=== PATIENT | male | born 1965 | race Hispanic/Latino ===

== ENCOUNTER 2016-06-16 13:22 | Emergency (ER) | payer MEDICAID, OTHER ==
[2016-06-16 13:22] VITALS: BMI 32.1
[2016-06-16 13:40] VITALS: RESP 18; TEMP 98.2; O2SAT 97
--- NOTE | 2016-06-16 14:59 | ED PDOC ---
Arrival/HPI - General Chief Complaint: Trauma Time Seen by Provider: 06/16/16 13:26 Historian: Patient - History of Present Illness Narrative History of Present Illness (Text): 06/16/16 14:55 Patient presents to the emergency room complaining of left knee pain and right ankle pain after he slipped and fell at home yesterday. Patient states that he can bear weight on the right ankle with pain, and the left knee with minimal discomfort. Denies any head injury, LOC, neck pain, back pain or any other injuries. IVAND Marline Past Medical History - Provider Review Nursing Documentation Reviewed: Yes - Cardiac Hx Cardiac Disorders: No Hx Hypertension: Yes - Pulmonary Hx Tuberculosis: No - Neurological HX Cerebrovascular Accident: No Hx Seizures: No - HEENT Hx HEENT Disorder: No - Renal Hx Renal Disorder: No - Endocrine/Metabolic Hx Diabetes Mellitus Type 2: Yes - Hematological/Oncological Hx Cancer: No - Integumentary Hx Dermatological Disorder: No - Musculoskeletal/Rheumatological Hx Back Pain: Yes Hx Falls: No Hx Herniated Disk: Yes - Gastrointestinal Hx Gastrointestinal Disorders: Yes Hx Gastroesophageal Reflux: Yes - Genitourinary/Gynecological Hx Sexually Transmitted Diseases: No - Psychiatric Hx Anxiety: Yes Hx Depression: Yes Hx Substance Use: No - Surgical History Other/Comment: Brain Surgery (pituitary adenoma). - Anesthesia Hx Anesthesia: Yes Hx Anesthesia Reactions: No Hx Malignant Hyperthermia: No - Suicidal Assessment Feels Threatened In Home Enviroment: No Family/Social History - Physician Review Nursing Documentation Reviewed: Yes Family/Social History: No Known Family HX Smoking Status: Heavy Smoker > 10 Cigarettes Daily Hx Alcohol Use: Yes Frequency of alcohol use: Socially Hx Substance Use: No Hx Substance Use Treatment: No Allergies/Home Meds Allergies/Adverse Reactions: Allergies No Known Allergies Allergy (Verified 10/28/15 23:56) Home Medications: Home Meds Medication Instructions Recorded Confirmed Pantoprazole 40 mg PO DAILY 04/28/14 10/29/15 Alprazolam [Xanax] 2 mg PO BID 10/29/15 10/29/15 Citalopram 10/29/15 Gabapentin [Neurontin] 900 mg PO TID 10/29/15 10/29/15 Linagliptin/Metformin HCl 10/29/15 [Jentadueto 2.5 mg-500 mg Tab] Niacin [Niacin ER] 10/29/15 Review of Systems - Review of Systems Constitutional: Normal. absent: Fatigue, Fevers Musculoskeletal: Normal, Arthralgias. absent: Back Pain, Neck Pain Skin: Normal. absent: Rash, Skin Lesions Physical Exam - Physical Exam Narrative Physical Exam (Text): 06/16/16 14:58 GENERAL APPEARANCE: Patient is awake, alert, oriented x 3, in mild painful distress. SKIN: Warm, dry; (-) cyanosis. L KNEE: (-) tenderness with (-) effusion. Able to extend actively to 0 degrees ; (-) instability on valgus or varus stress. Drawer sign (-). (-) distal neurovascular deficit. 2 point discrimination. Hip, thigh, leg and ankle: (- ) tenderness or limitation of motion. R ANKLE: Ankle: (-) swelling, tenderness of the medial aspect of the ankle; (+ ) mild swelling and tenderness of the lateral ankle; (+) limited range of motion secondary to pain. Achilles tendon intact and nontender. Knee and foot : (-) injury. CARDIOVASCULAR: (+) distal pulse. NEUROLOGIC: (+) distal sensation. Vital Signs Temp Pulse Resp BP Pulse Ox 06/16/16 13:39 98.2 F 86 18 142/81 97 Medical Decision Making ED Course and Treatment: 06/16/16 14:59 50 yo M presents to the emergency room for left knee and right ankle pain after slip and fall yesterday. XRs ordered. XR left knee: no fracture, no dislocation, as read by PA XR right ankle: no fracture, no dislocation, as read by PA Patient advised that official radiology read of XR is still pending and will call the patient if there is any discrepancy within 24 hours. Jw wrap applied to left knee and right ankle. Patient offered crutches. X-ray results discussed the patient in great detail.Based on history, exam and diagnostic results plan will be for patient follow-up. Prescription provided. Patient states he fully agrees with and understands discharge instructions. States that he agrees with the plan and disposition. Verbalized and repeated discharge instructions and plan. I have given the patient opportunity to ask any additional questions. Follow up with primary care physician in 1-2 days without fail. Advised to take medication as prescribed. Return to the emergency room at any time for any new or worsening symptoms. - RAD Interpretation Radiology Orders: 06/16/16 13:54 ANKLE RIGHT 3 VIEWS ROUTINE [RAD] Stat KNEE LEFT 2 VIEWS (AP & LAT) [RAD] Stat - Medication Orders Current Medication Orders: Discontinued Medications Tramadol HCl (Ultram) 50 mg PO STAT STA Stop: 06/16/16 13:55 Last Admin: 06/16/16 14:00 Dose: 50 MG - PA / COUPLES THERAPIST / Resident Statement MD/ has reviewed & agrees with the documentation as recorded. Disposition/Present on Arrival - Present on Arrival Any Indicators Present on Arrival: No History of DVT/PE: No History of Uncontrolled Diabetes: No Urinary Catheter: No History of Decub. Ulcer: No History Surgical Site Infection Following: None - Disposition Have Diagnosis and Disposition been Completed?: Yes Diagnosis: Knee sprain, Ankle sprain Disposition: HOME/ ROUTINE Disposition Time: 15:02 Patient Plan: Discharge Patient Problems: Current Active Problems Problem Status Diagnosed Ankle sprain Acute Knee sprain Acute Condition: GOOD Discharge Instructions (ExitCare): Ankle Sprain (ED), Knee Sprain (ED) Print Language: KOREAN Additional Instructions: Thank you for letting us take care of you today. You were treated for knee sprain, ankle sprain. The emergency medical care you received today was directed at your acute symptoms. If you were prescribed any medication, please fill it and take as directed. It may take several days for your symptoms to resolve. Return to the Emergency Department if your symptoms worsen, do not improve, or if you have any other problems. Please contact your doctor in 2 days for re-evaluation and follow up. Bring any paperwork you were given at discharge with you along with any medications you are taking to your follow up visit. Our treatment cannot replace ongoing medical care by a primary care provider (PCP) outside of the emergency department. Thank you for allowing the [facility] team to be part of your care today. Prescriptions: Meloxicam [Mobic] 15 mg PO DAILY #20 tab
[2016-06-16 15:19] VITALS: BP 138/79; PULSE 79
--- NOTE | 2016-06-16 16:11 | RAD ---
PROCEDURE: Right Wrist Radiographs. HISTORY: pain COMPARISON: None. FINDINGS: BONES: Normal. No fracture. JOINTS: Normal. No dislocation. SOFT TISSUES: Normal. OTHER FINDINGS: None. IMPRESSION: Normal right wrist radiographs.
--- NOTE | 2016-06-16 16:22 | RAD ---
HISTORY: pain COMPARISON: No prior FINDINGS: BONES: Normal. No fracture. JOINTS: Normal. No osteoarthritis. SOFT TISSUE: Normal. OTHER FINDINGS: Suprapatellar spur formation.. IMPRESSION: No fracture.
== END 2016-06-16 15:35 | disposition home or self-care (01) ==
LOC: ED 13:22
DX: S83.92XA Sprain of unspecified site of left knee, initial encounter (principal); S93.401A Sprain of unspecified ligament of right ankle, initial encounter; W01.0XXA Fall on same level from slipping, tripping and stumbling without subsequent striking against object, initial encounter; Y92.009 Unspecified place in unspecified non-institutional (private) residence as the place of occurrence of the external cause; E11.9 Type 2 diabetes mellitus without complications; I10 Essential (primary) hypertension
CPT/HCPCS: 73560; 73610; 96372; 99285; J1885

== ENCOUNTER 2016-07-14 22:53 | Emergency (ER) | payer MEDICAID, OTHER ==
[2016-07-14 23:06] VITALS: BP 142/80; PULSE 89; RESP 16; TEMP 98; BMI 32.7
--- NOTE | 2016-07-14 23:21 | ED PDOC ---
Arrival/HPI - General Chief Complaint: Trauma Time Seen by Provider: 07/14/16 23:18 Historian: Patient - History of Present Illness Narrative History of Present Illness (Text): 07/14/16 23:21 Feliciano Zelaya is a 50 year old male, whose past medical history includes diabetes, hypertension, hyperlipidemia, GERD, depression, and anxiety, who presents to the emergency department status post mechanical fall yesterday. Patient states he was walking outside on the sidewalk yesterday when he tripped and fell to the ground. Patient states he hit the left side of his jaw and landed on his right hand/arm. Patient now complaining of right forearm pain radiating down to hand and left jaw pain. Patient also believes he may have chipped his right lower molar. Patient denies any headache, dizziness, vision changes, neck pain, back pain, abdominal pain, nausea, vomiting, numbness/ tingling in extremity, or any other complaints. Time/Duration: 24 hours (yesterday) Symptom Onset: Gradual Symptom Course: Unchanged Activities at Onset: Light Context: Walking, Street Past Medical History - Provider Review Nursing Documentation Reviewed: Yes - Cardiac Hx Cardiac Disorders: No Hx Hypertension: Yes - Pulmonary Hx Tuberculosis: No - Neurological HX Cerebrovascular Accident: No Hx Seizures: No - HEENT Hx HEENT Disorder: No - Renal Hx Renal Disorder: No - Endocrine/Metabolic Hx Diabetes Mellitus Type 2: Yes - Hematological/Oncological Hx Cancer: No - Integumentary Hx Dermatological Disorder: No - Musculoskeletal/Rheumatological Hx Back Pain: Yes Hx Falls: No Hx Herniated Disk: Yes - Gastrointestinal Hx Gastrointestinal Disorders: Yes Hx Gastroesophageal Reflux: Yes - Genitourinary/Gynecological Hx Sexually Transmitted Diseases: No - Psychiatric Hx Anxiety: Yes Hx Depression: Yes Hx Substance Use: No - Surgical History Other/Comment: Brain Surgery (pituitary adenoma). - Anesthesia Hx Anesthesia: Yes Hx Anesthesia Reactions: No Hx Malignant Hyperthermia: No - Suicidal Assessment Feels Threatened In Home Enviroment: No Family/Social History - Physician Review Nursing Documentation Reviewed: Yes Family/Social History: No Known Family HX Smoking Status: Heavy Smoker > 10 Cigarettes Daily Hx Alcohol Use: Yes Hx Substance Use: No Hx Substance Use Treatment: No Allergies/Home Meds Allergies/Adverse Reactions: Allergies No Known Allergies Allergy (Verified 10/28/15 23:56) Home Medications: Home Meds Medication Instructions Recorded Confirmed Pantoprazole 40 mg PO DAILY 04/28/14 10/29/15 Alprazolam [Xanax] 2 mg PO BID 10/29/15 10/29/15 Citalopram 10/29/15 Gabapentin [Neurontin] 900 mg PO TID 10/29/15 10/29/15 Linagliptin/Metformin HCl 10/29/15 [Jentadueto 2.5 mg-500 mg Tab] Niacin [Niacin ER] 10/29/15 Review of Systems - Physician Review All systems were reviewed & negative as marked: Yes - Review of Systems Constitutional: Normal Eyes: Normal ENT: Other (+left jaw pain, +chipped right lower tooth) Respiratory: Normal. absent: SOB, Cough Cardiovascular: Normal. absent: Chest Pain Gastrointestinal: Normal. absent: Abdominal Pain, Diarrhea, Nausea, Vomiting Genitourinary Male: Normal. absent: Dysuria, Frequency, Hematuria, Urinary Output Changes Musculoskeletal: Arthralgias (+right forearm/wrist pain) Skin: Normal Neurological: Normal. absent: Headache, Dizziness Endocrine: Normal Hemo/Lymphatic: Normal Psychiatric: Normal Physical Exam Vital Signs Reviewed: Yes Vital Signs Temp Pulse Resp BP Pulse Ox 07/14/16 23:05 98.0 F 89 16 142/80 97 Temperature: Afebrile Blood Pressure: Normal Pulse: Regular Respiratory Rate: Normal Appearance: Positive for: Well-Appearing, Non-Toxic, Comfortable Pain Distress: None Mental Status: Positive for: Alert and Oriented X 3 - Systems Exam Head: Present: Normocephalic, Tenderness (Tenderness to left mandible) Pupils: Present: PERRL Extroacular Muscles: Present: EOMI Conjunctiva: Present: Normal Mouth: Present: Moist Mucous Membranes, Other ([place] right lower premolar) Neck: Present: Normal Range of Motion Respiratory/Chest: Present: Clear to Auscultation, Good Air Exchange. No: Respiratory Distress, Accessory Muscle Use Cardiovascular: Present: Regular Rate and Rhythm, Normal S1, S2. No: Murmurs Abdomen: Present: Normal Bowel Sounds. No: Tenderness, Distention, Peritoneal Signs Upper Extremity: Present: NORMAL PULSES, Tenderness (Tenderness to right wrist/ hand), Neurovascularly Intact, Capillary Refill < 2s. No: Cyanosis, Edema, Temperature Abnormalties Lower Extremity: Present: Normal Inspection. No: Edema Neurological: Present: GCS=15, CN II-XII Intact, Speech Normal Skin: Present: Warm, Dry, Normal Color. No: Rashes Psychiatric: Present: Alert, Oriented x 3, Normal Insight, Normal Concentration Medical Decision Making ED Course and Treatment: 07/14/16 23:21 Impression: 50 year old male complaining of right forearm pain radiating to hand and left jaw pain s/p mechanical fall yesterday. Differential Diagnosis included but are not limited to: fracture vs. contusion vs. sprain Plan: -- CT Maxillofacial -- XR Right Forearm -- XR Right Wrist -- XR Right Hand -- Reassess and disposition Prior Visits: Notes and results from previous visits were reviewed. Progress Notes: 07/15/16 00:30 Reviewed radiology, XR Right Forearm shows no evidence of fracture. XR Right Wrist shows no evidence of fracture. XR Right Hand shows no evidence of fracture. CT Maxillofacial shows: 1. No fracture. 2. Incidental/non-acute findings are described above. Re-evaluation Time: 01:13 Reassessment Condition: Re-examined, Improved - RAD Interpretation Narrative RAD Interpretations (Text): XR Right Forearm shows no evidence of fracture. XR Right Wrist shows no evidence of fracture. XR Right Hand shows no evidence of fracture. CT Maxillofacial shows: Bones/joints: No acute fracture. Degenerative changes of cervical spine. Soft tissues: Minimal facial soft tissue swelling. Orbits: Unremarkable as visualized. Sinuses: Mild focal mucosal thickening RIGHT posterior ethmoid, sphenoid sinuses. No air-fluid levels. Postsurgical changes. Dental: Dental corey. IMPRESSION: 1. No fracture. 2. Incidental/non-acute findings are described above. Radiology Orders: 07/14/16 23:21 MAXILLOFACIAL W/O CONTRAST [CT] Stat 07/14/16 23:22 FOREARM RIGHT [RAD] Stat HAND RIGHT 3 VIEWS [RAD] Stat WRIST, RIGHT 3 VIEWS [RAD] Stat Transfer Engineer: ED Physician, Radiologist - Medication Orders Current Medication Orders: Discontinued Medications Oxycodone/Acetaminophen (Percocet 5/325 Mg Tab) 1 tab PO STAT STA Stop: 07/15/16 00:07 Last Admin: 07/15/16 00:28 Dose: 1 tab - Scribe Statement The provider has reviewed the documentation as recorded by the Jairo English Provider Attestation: All medical record entries made by the Jairo were at my direction and personally dictated by me. I have reviewed the chart and agree that the record accurately reflects my personal performance of the history, physical exam, medical decision making, and the department course for this patient. I have also personally directed, reviewed, and agree with the discharge instructions and disposition. Disposition/Present on Arrival - Present on Arrival Any Indicators Present on Arrival: No History of DVT/PE: No History of Uncontrolled Diabetes: No Urinary Catheter: No History of Decub. Ulcer: No History Surgical Site Infection Following: None - Disposition Have Diagnosis and Disposition been Completed?: Yes Diagnosis: Right wrist sprain Disposition: HOME/ ROUTINE Disposition Time: 01:13 Condition: GOOD Discharge Instructions (ExitCare): Wrist Injury (ED) Prescriptions: oxyCODONE/Acetaminophen [Percocet 5/325 mg Tab] 1 ea PO QID #6 tab Referrals: Thierry Ledesma DO [Staff Provider] - Follow up with primary [facility] [place] [Outside] - Follow up with primary
[2016-07-15] MEDS ORDERED: Oxycodone/Acetaminophen 5/325 mg Tab PO STA (00:06)
--- NOTE | 2016-07-15 00:33 | CT ---
EXAM: CT Maxillofacial Without Intravenous Contrast CLINICAL HISTORY: 50 years old, male; Injury or trauma; Fall; Initial encounter; Concussion /head injury; Loss of consciousness not known TECHNIQUE: Axial computed tomography images of the face without intravenous contrast. This CT exam was performed using one or more of the following dose reduction techniques: automated exposure control, adjustment of the mA and/or kV according to patient size, and/or use of iterative reconstruction technique. Coronal and sagittal reformatted images were created and reviewed. COMPARISON: No relevant prior studies available. FINDINGS: Bones/joints: No acute fracture. Degenerative changes of cervical spine. Soft tissues: Minimal facial soft tissue swelling. Orbits: Unremarkable as visualized. Sinuses: Mild focal mucosal thickening RIGHT posterior ethmoid, sphenoid sinuses. No air-fluid levels. Postsurgical changes. Dental: Dental corey. IMPRESSION: 1. No fracture. 2. Incidental/non-acute findings are described above.
[2016-07-15 01:32] VITALS: O2SAT 98
--- NOTE | 2016-07-15 10:34 | RAD ---
PROCEDURE: Right Wrist Radiographs. HISTORY: fall COMPARISON: None. FINDINGS: BONES: Normal. No fracture. JOINTS: Normal. No dislocation. SOFT TISSUES: Normal. OTHER FINDINGS: None. IMPRESSION: Normal right wrist radiographs.
--- NOTE | 2016-07-15 10:35 | RAD ---
PROCEDURE: Right Hand Radiographs. HISTORY: fall COMPARISON: None. FINDINGS: BONES: Normal. No fracture. JOINTS: Normal. No osteoarthritic changes. SOFT TISSUES: Normal. OTHER FINDINGS: None. IMPRESSION: Normal right hand radiographs.
--- NOTE | 2016-07-15 10:35 | RAD ---
PROCEDURE: Radiographs of the Right Forearm HISTORY: fall COMPARISON: None available. TECHNIQUE: Frontal and lateral views obtained. FINDINGS: BONES: No fracture or destructive lesion. JOINT SPACES: Unremarkable. OTHER FINDINGS: None. IMPRESSION: Unremarkable radiographs of the right forearm.
== END 2016-07-15 01:32 | disposition home or self-care (01) ==
LOC: ED 22:53
DX: S63.501A Unspecified sprain of right wrist, initial encounter (principal); W01.0XXA Fall on same level from slipping, tripping and stumbling without subsequent striking against object, initial encounter; Y93.01 Activity, walking, marching and hiking; Y92.480 Sidewalk as the place of occurrence of the external cause; I10 Essential (primary) hypertension; E11.9 Type 2 diabetes mellitus without complications; F17.210 Nicotine dependence, cigarettes, uncomplicated
CPT/HCPCS: 29240; 70486; 73090; 73110; 73130; 96372; 99284; J1885

== ENCOUNTER 2016-09-08 02:32 | Emergency (ER) | payer MEDICAID, OTHER ==
[2016-09-08 02:32] VITALS: BMI 33.3
[2016-09-08 02:46] VITALS: RESP 18; TEMP 98.1; O2SAT 99
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
[2016-09-08] MEDS ORDERED: TDAP Vaccine 0.5 mL Syr IM ONE (04:07)
[2016-09-08 04:47] VITALS: BP 132/88; PULSE 88
== END 2016-09-08 04:45 | disposition home or self-care (01) ==
LOC: ED 02:32
DX: S02.2XXA Fracture of nasal bones, initial encounter for closed fracture (principal); Y04.0XXA Assault by unarmed brawl or fight, initial encounter; Z23 Encounter for immunization

== ENCOUNTER 2017-02-22 01:11 | Inpatient (IN) | payer MEDICAID, OTHER ==
[2017-02-22 01:19] VITALS: BMI 31.6
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
[2017-02-22 02:22] LABS: BASO # 0.06 K/mm3 (0.0-2.0); BASO % 0.7 % (0.0-3.0); EOS # 0.3 (0.0-0.7); EOS % 2.8 % (1.5-5.0); GRAN # 4.86 (1.4-6.5); HEMATOCRIT 39.8 % (42.0-52.0); LYMPH # 3.3 (1.2-3.4); LYMPH % 36.9 % (22.0-35.0); MEAN CELL VOLUME 91.9 fl (80.0-105.0); MEAN CORPUSCULAR HEMOGLOBIN 30.3 pg (25.0-35.0); MEAN CORPUSCULAR HGB CONC 32.9 g/dl (31.0-37.0); MEAN PLATELET VOLUME 9.8 fl (7.0-11.0); MONO # 0.5 (0.1-0.6); MONO % 5.6 % (1.0-6.0); RED CELL DISTRIBUTION WIDTH 13.1 % (11.5-14.5)
[2017-02-22 02:24] LABS: ALB/GLOB RATIO 1.7 (1.1-1.8); ALKALINE PHOSPHATASE 62 U/L (38-126); ALT/SGPT 38 U/L (7-56); AST/SGOT 27 U/L (17-59); BILIRUBIN,TOTAL 0.4 mg/dL (0.2-1.3); BLOOD UREA NITROGEN 10 mg/dL (7-21); CALCIUM 9.3 mg/dL (8.4-10.5); CARBON DIOXIDE 25 mmol/L (21-33); CHLORIDE 104 mmol/L (98-107); GFR AFRICAN-AMERICAN > 60; GLUCOSE,RANDOM 110 mg/dL (70-110); SODIUM 141 mmol/L (132-148); TOTAL PROTEIN 6.8 g/dL (5.8-8.3)
[2017-02-22 06:35] VITALS: O2SAT 98
[2017-02-22 06:54] VITALS: RESP 20
--- NOTE | 2017-02-22 09:37 | RAD ---
HISTORY: medical clearance COMPARISON: Comparison chest dated 10/29/2015. FINDINGS: LUNGS: No active pulmonary disease. PLEURA: No significant pleural effusion identified, no pneumothorax apparent. CARDIOVASCULAR: Normal. OSSEOUS STRUCTURES: No significant abnormalities. VISUALIZED UPPER ABDOMEN: Normal. OTHER FINDINGS: None. IMPRESSION: No active disease.
[2017-02-22 09:46] LABS: CHOLESTEROL 168 mg/dL (130-200)
[2017-02-22 09:54] LABS: FREE T4 0.98 ng/dL (0.78-2.19)
[2017-02-22 10:08] LABS: THYROID STIMULATING HORMONE 0.9 mIU/mL (0.46-4.68)
--- NOTE | 2017-02-22 10:43 | CARD ---
APPROVED REPORT EKG Measurement Heart [id number] <Conclusion> Normal sinus rhythm Normal ECG
--- NOTE | 2017-02-22 11:18 | PCM.BM ---
<Sushil Burgos - Last Filed: 02/22/17 11:15> Treatment Plan Problems - Problems identified on initial assessmt High risk for suicide Date Initiated: 02/22/17 Time Initiated: 11:18 Assessment reference: HP, NA Status: Active Ineffective coping Date Initiated: 02/22/17 Time Initiated: 11:19 Assessment reference: HP, NA Status: Active Hopelessness/Helplessness Date Initiated: 02/22/17 Time Initiated: 11:21 Assessment reference: HP, NA Status: Active Treatment assets and liabiliti Patient Assests: negotiates basic needs, good interpersonal skills Patient Liabilities: physical pain, financial problems, poor support system, relationship conflicts, medical problems - Milieu Protocol Maintain good personal hygiene: daily Encourage regular showers, daily Remind patient to perform daily oral care, daily Assist patient to perform ADL's Maintain personal safety: daily Educate patient to report safety concerns to staff, daily Monitor environment for contraband/sharps Medication safety: Monitor for expected outcome, potential side effects: daily, Assess barriers to learning: daily, Assess readiness for medication education: daily Milieu Narrative: * Group, milieu and supportive tx * Increase Wellbutrin XL to 300 mg daily * Celexa 40 mg daily, consider switch to another antidepressant. Will review with patient * Xanax 2 mg po bid for anxiety * Seroquel 200 mg po HS for mood control and off label for sleep. * Remeron 30 mg hs for depression * Awaiting medical f/u * Vitals reviewed and noted below: Selected Entries 02/22/17 02/22/17 06:32 06:52 Temperature 98.4 F 97.4 F L Pulse Rate 78 69 Respiratory 18 20 Rate Blood Pressure 135/80 133/86 O2 Sat by Pulse 98 Oximetry ER LABS AND STUDIES 02/22/17 03:29 Reviewed EKG, NSR at [address]-segment elevations or depressions, no T-wave inversions, normal intervals. CXR reviewed, no acute processes. 02/22/17 03:40: Urine Opiates Screen Negative, Urine Methadone Screen Negative, Ur Barbiturates Screen Negative, Ur Phencyclidine Scrn Negative, Ur Amphetamines Screen Negative, U Benzodiazepines Scrn Positive, U Oth Cocaine Metabols Negative, U Cannabinoids Screen Negative 02/22/17 02:00: Alcohol, Quantitative 100 H 02/22/17 02:00: Sodium 141, Potassium 4.0, Chloride 104, Carbon Dioxide 25, Anion Gap 16, BUN 10, Creatinine 0.9, Est GFR ( Amer) > 60, Est GFR (Non- Af Amer) > 60, Random Glucose 110, Calcium 9.3, Total Bilirubin 0.4, AST 27, ALT 38, Alkaline Phosphatase 62, Total Protein 6.8, Albumin 4.3, Globulin 2.6, Albumin/Globulin Ratio 1.7 02/22/17 02:00: WBC 9.0 D, RBC 4.33, Hgb 13.1 L, Hct 39.8 L, MCV 91.9, MCH 30.3 , MCHC 32.9, RDW 13.1, Plt Count 287, MPV 9.8, Gran % 54.0, Lymph % (Auto) 36.9 H, Beauregard % (Auto) 5.6, Eos % (Auto) 2.8, Baso % (Auto) 0.7, Gran # 4.86, Lymph # 3.3, Beauregard # 0.5, Eos # 0.3, Baso # 0.06 Discharge/Continuing Care - Education Needs Education Needs: Patient Medication, Patient Diagnosis/Disease Process, Patient Coping Skills, Patient Placement options, Patient Community resources, Patient Uses of Medical Equipment, Patient Health Practices/Safety, Patient Personal Hygiene/Grooming, Patient Aftercare Safety Plan, Patient Other - Discharge Discharge Criteria: Free of Suicidal thoughts, Free of Homicidal thoughts, Normal sleep pattern, Ability to care for self - Treatment Team Participation Patient/Family/SO Statement: * Group, milieu and supportive tx * Increase Wellbutrin XL to 300 mg daily * Celexa 40 mg daily, consider switch to another antidepressant. Will review with patient * Xanax 2 mg po bid for anxiety * Seroquel 200 mg po HS for mood control and off label for sleep. * Remeron 30 mg hs for depression * Awaiting medical f/u * Vitals reviewed and noted below: Selected Entries 02/22/17 02/22/17 06:32 06:52 Temperature 98.4 F 97.4 F L Pulse Rate 78 69 Respiratory 18 20 Rate Blood Pressure 135/80 133/86 O2 Sat by Pulse 98 Oximetry ER LABS AND STUDIES 02/22/17 03:29 Reviewed EKG, NSR at [address]-segment elevations or depressions, no T-wave inversions, normal intervals. CXR reviewed, no acute processes. 02/22/17 03:40: Urine Opiates Screen Negative, Urine Methadone Screen Negative, Ur Barbiturates Screen Negative, Ur Phencyclidine Scrn Negative, Ur Amphetamines Screen Negative, U Benzodiazepines Scrn Positive, U Oth Cocaine Metabols Negative, U Cannabinoids Screen Negative 02/22/17 02:00: Alcohol, Quantitative 100 H 02/22/17 02:00: Sodium 141, Potassium 4.0, Chloride 104, Carbon Dioxide 25, Anion Gap 16, BUN 10, Creatinine 0.9, Est GFR ( Amer) > 60, Est GFR (Non- Af Amer) > 60, Random Glucose 110, Calcium 9.3, Total Bilirubin 0.4, AST 27, ALT 38, Alkaline Phosphatase 62, Total Protein 6.8, Albumin 4.3, Globulin 2.6, Albumin/Globulin Ratio 1.7 02/22/17 02:00: WBC 9.0 D, RBC 4.33, Hgb 13.1 L, Hct 39.8 L, MCV 91.9, MCH 30.3 , MCHC 32.9, RDW 13.1, Plt Count 287, MPV 9.8, Gran % 54.0, Lymph % (Auto) 36.9 H, Beauregard % (Auto) 5.6, Eos % (Auto) 2.8, Baso % (Auto) 0.7, Gran # 4.86, Lymph # 3.3, Beauregard # 0.5, Eos # 0.3, Baso # 0.06 <Mouna Sellers - Last Filed: 02/23/17 04:52> - Diagnosis (1) Major depressive disorder, severe Status: Acute <Estrella Franco - Last Filed: 02/24/17 16:18> Family Contact Family involvement: Family/SO is involved Family contact: Patient agrees to contact - Outside Agency [facility] Care involvment: Information-sharing Agency contact name: [facility] Agency contact number: [phone]
--- NOTE | 2017-02-22 14:19 | CP.PCM.CON ---
<Isidoro Hawk - Last Filed: 02/22/17 14:39> History of Present Illness - History of Present Illness History of Present Illness: Isidoro Hawk DO PGY1 - Internal Medicine Consult Note Consultation for medical management of DM, HTN, HLD Patient is a 51 yo M with PMH of MDD, J CARLSO, DM, HTN, HLD, and pituitary adenoma s /p transsphenoidal resection. Presents to the hospital complaining of depression and suicidal ideation with plan. He had called his therapist to "say goodbye" but his therapist called the police who brought him to the hospital. He denies any somatic complaints. He reports that he lost 25 pounds in the past 2-3 months due to decreased appetite and worsened depressive symptoms. He denies any chest pain, SOB, cough, nausea, vomiting, diarrhea, constipation, abdominal pain, hematochezia, melena, hemoptysis, fever, chills, night sweats. 12 point ROS obtained and is negative except as in HPI PMH: MDD, J CARLOS, HTN, HLD, DM, pituitary adenoma s/p transphenoidal resection PSH: transphenoidal resection of pituitary adenoma 2009 Soc: Currently vapes; prior 1 PPD smoker, 35 PYH; drinks 4-6 drinks 3 times monthly; denies illicits FHx: Denies All: NKDA PMD: Marline Psych: Jc Cifuentes Past Patient History - Past Medical History & Family History Past Medical History?: Yes - Past Social History Smoking Status: Former Smoker - CARDIAC Hx Cardiac Disorders: Yes - PULMONARY Hx Respiratory Disorders: Yes Hx Bronchitis: Yes (2008) - NEUROLOGICAL Hx Neurological Disorder: No - HEENT Hx HEENT Problems: No - RENAL Hx Chronic Kidney Disease: No - ENDOCRINE/METABOLIC Hx Endocrine Disorders: Yes (removal pitituary tumor) - INTEGUMENTARY Hx Dermatological Problems: No - MUSCULOSKELETAL/RHEUMATOLOGICAL Hx Herniated Disk: Yes (lumbar and cervical) - GASTROINTESTINAL Hx Gastrointestinal Disorders: Yes Hx Gastroesophageal Reflux: Yes Other/Comment: IRREGULAR BOWEL PATTERN - GENITOURINARY/GYNECOLOGICAL Hx Genitourinary Disorders: No Hx Sexually Transmitted Disorders: No - PSYCHIATRIC Hx Psychophysiologic Disorder: Yes Hx Depression: Yes Hx Emotional Abuse: No Hx Physical Abuse: No Hx Substance Use: No - ANESTHESIA Hx Anesthesia: Yes Hx Anesthesia Reactions: No Hx Malignant Hyperthermia: No Meds Allergies/Adverse Reactions: Allergies Allergy/AdvReac Type Severity Reaction Status Date / Time No Known Allergies Allergy Verified 02/22/17 01:18 - Medications Medications: Current Medications Alprazolam (Xanax) 2 mg PO BID [facility] PRN Reason: Protocol Last Admin: 02/22/17 09:52 Dose: 2 mg Aspirin (Aspirin Chewable) 81 mg PO DAILY [facility] Last Admin: 02/22/17 09:53 Dose: 81 mg Atorvastatin Calcium (Lipitor) 40 mg PO DIN [facility] Bupropion HCl (Wellbutrin Xl) 300 mg PO DAILY [facility] Citalopram Hydrobromide (Celexa) 40 mg PO DAILY [facility] Last Admin: 02/22/17 09:53 Dose: 40 mg Insulin Human Regular (Humulin R Low) 0 units SC ACHS [facility] PRN Reason: Protocol Lisinopril (Zestril) 20 mg PO DAILY [facility] Last Admin: 02/22/17 09:53 Dose: 20 mg Lorazepam (Ativan) 1 mg PO Q6H PRN; Protocol PRN Reason: Withdrawal Mirtazapine (Remeron) 30 mg PO HS [facility] Multivitamins (Thera Tab) 1 tab PO 0800 [facility] Nicotine (Nicoderm Cq) 1 patch TD DAILY [facility] Last Admin: 02/22/17 13:04 Dose: 1 patch Quetiapine Fumarate (Seroquel) 200 mg PO HS [facility] PRN Reason: Protocol Thiamine HCl (Vitamin B1 Tab) 100 mg PO DAILY [facility] Physical Exam - Constitutional Appears: Non-toxic, No Acute Distress - Head Exam Head Exam: ATRAUMATIC, NORMOCEPHALIC - Eye Exam Eye Exam: EOMI, Normal appearance, PERRL. absent: Scleral icterus - ENT Exam ENT Exam: Mucous Membranes Moist - Neck Exam Neck exam: Negative for: Lymphadenopathy, Thyromegaly - Respiratory Exam Respiratory Exam: Clear to Auscultation Bilateral, NORMAL BREATHING PATTERN - Cardiovascular Exam Cardiovascular Exam: RRR, +S1, +S2 - GI/Abdominal Exam GI & Abdominal Exam: Normal Bowel Sounds, Soft. absent: Distended, Firm, Guarding, Rebound, Rigid, Tenderness - Extremities Exam Extremities exam: Negative for: calf tenderness, pedal edema - Neurological Exam Neurological exam: Alert, Oriented x3 - Psychiatric Exam Psychiatric exam: Depressed, Flat Affect - Skin Skin Exam: Dry, Intact Results - Vital Signs Recent Vital Signs: Last Vital Signs Temp 97.4 F L 12/09/17 06:52 Pulse 69 02/22/17 06:52 Resp 20 02/22/17 06:52 BP 133/86 02/22/17 06:52 Pulse Ox 98 02/22/17 06:32 - Labs Result Diagrams: 02/22/17 02:00 02/22/17 02:00 Labs: Laboratory Results - last 24 hr 02/22/17 02/22/17 08:10 08:10 Triglycerides 317 H Cholesterol 168 LDL Cholesterol Direct 84 HDL Cholesterol 53 Free T4 0.98 TSH 3rd Generation 0.90 Assessment & Plan - Assessment and Plan (Free Text) Assessment: 51 yo M with PMH of MDD, J CARLOS, HTN, HLD, DM, and pitutary adenoma s/p transsphenoidal resection presents for depressive symptoms and suicidal ideation. Plan: 1. Depression with suicidal ideation/plan - Patient currently denies suicidal ideation, but did describe the thoughts and plan he had prior to his admission - Currently on multiple psychotropic medications - Initial labs unremarkable, beyond alcohol level and benzodiazepines in the UDS , which he has prescribed - Continue management per psychiatry 2. HTN - BP well controlled - Continue home lisinopril 3. DM - Blood sugar currently well controlled - Patient takes Linagliptin/Metformin at home - Currently on SSI Low with accucheck ACHS - Continue to monitor blood sugar; if not requiring much insulin, will switch back to oral hypoglycemics 4. HLD - Lipid panel shows mildly elevated triglyceride - Continue home statin 5. h/o pituitary adenoma s/p transsphenoidal resection - Patient takes cabergoline at home, not on formulary; instructed patient to have family bring home meds to the hospital GI/DVT Ppx - Protonix; patient is ambulatory Patient seen, discussed, and reviewed with attending <Natanael Bailey - Last Filed: 02/22/17 17:14> Meds - Medications Medications: Current Medications Alprazolam (Xanax) 2 mg PO BID [facility] PRN Reason: Protocol Last Admin: 02/22/17 09:52 Dose: 2 mg Aspirin (Aspirin Chewable) 81 mg PO DAILY [facility] Last Admin: 02/22/17 09:53 Dose: 81 mg Atorvastatin Calcium (Lipitor) 40 mg PO DIN [facility] Bupropion HCl (Wellbutrin Xl) 300 mg PO DAILY [facility] Citalopram Hydrobromide (Celexa) 40 mg PO DAILY [facility] Last Admin: 02/22/17 09:53 Dose: 40 mg Insulin Human Regular (Humulin R Low) 0 units SC ACHS [facility] PRN Reason: Protocol Lisinopril (Zestril) 20 mg PO DAILY [facility] Last Admin: 02/22/17 09:53 Dose: 20 mg Lorazepam (Ativan) 1 mg PO Q6H PRN; Protocol PRN Reason: Withdrawal Mirtazapine (Remeron) 30 mg PO HS [facility] Multivitamins (Thera Tab) 1 tab PO 0800 [facility] Nicotine (Nicoderm Cq) 1 patch TD DAILY [facility] Last Admin: 02/22/17 13:04 Dose: 1 patch Quetiapine Fumarate (Seroquel) 200 mg PO HS [facility] PRN Reason: Protocol Thiamine HCl (Vitamin B1 Tab) 100 mg PO DAILY [facility] Results - Vital Signs Recent Vital Signs: Last Vital Signs Temp 97.4 F L 02/22/17 06:52 Pulse 73 02/22/17 16:11 Resp 20 02/22/17 06:52 BP 123/77 02/22/17 16:11 Pulse Ox 98 02/22/17 06:32 - Labs Result Diagrams: 02/22/17 02:00 02/22/17 02:00 Labs: Laboratory Results - last 24 hr 02/22/17 02/22/17 08:10 08:10 Triglycerides 317 H Cholesterol 168 LDL Cholesterol Direct 84 HDL Cholesterol 53 Free T4 0.98 TSH 3rd Generation 0.90 Attending/Attestation - Attestation I have personally seen and examined this patient.: Yes I have fully participated in the care of the patient.: Yes I have reviewed all pertinent clinical information: Yes Notes (Text): 02/22/17 17:10 Attending note; Patient seen and examined with resident in psych floor. Patient is a 51-year-old male with past medical history of depression anxiety hypertension, diabetes, and pituitary adenoma s/p transsphenoidal resection. Presents to the hospital complaining of depression and suicidal ideation. blood pressure and diabetes are better controlled. labs reviewed. Active smoking; smoking cessation is strongly advised. Started on NicoDerm patch. Alcohol abuse; currently not in withdrawal. Continue multivitamin, thiamine and folic acid. Ativan prn ordered. complete alcohol cessation is strongly advised. History of pituitary surgery. Continue cabergoline/home meds. patient is clinically table. Please reconsult as needed. Thank you for the courtesy of this consultation. 02/22/17 17:14
[2017-02-22] MEDS: Insulin Reg-LOW-Coverage SC SCH (22:03)
[2017-02-23] MEDS: Insulin Reg-LOW-Coverage SC SCH ×4 (08:00→21:24)
[2017-02-23] MEDS: Multivitamin Therapeutic Tab PO SCH (08:30)
[2017-02-23] MEDS: buPROPion 300 mg/24 Hours XL Tab PO SCH (08:30)
--- NOTE | 2017-02-23 08:48 | PCM.PYCHPN ---
Psychiatric Progress Note - Psychiatric Progress Note Patient seen today, length of contact: 25 min Patient Chief Complaint: "depressed" Problems Identified/Issues Discussed: History of Present Illness and Precipitating Events: Patient is a 51-year old white male with a history of major depressive disorder or alcohol use disorder, multiple prior psychiatric hospitalizations- most recently at [facility] 06/16/15-06/22/15, compliant with psychiatric medications prescribed by Dr. Lott at [facility] who was BIB EMS to the ER complaining of depression and suicidal thoughts with plan. He would not elaborate on the plan because it was "too graphic". Patient also reported that he drank a few beers prior to arrival. Patient reports he has a long history of depression since childhood. Indicates that symptoms have been worsening recently. He endorses crying spells, poor sleep low frustration tolerance, hopelessness, low energy and motivation despite compliance with psychiatric medications. Reports stressors of poor finances and the pending anniversary of his ex- who on [place] two years ago. Presently he is in control, his thought process is coherent and goal directed. Soeech is within normal limits, fluent and patient can express needs well. Affect is constricted. He denies a perceptual disturbance and he does not appear to be responding to internal stimuli. SOCIAL HISTORY Patient was born in raised in [place]. He resides with his two adult sons. Patient graduate high school and he is unemployed. He had a work-related fall in 2010 with resulting bulging discs in his neck and back-had a long-term worker 's compensation case . Patient denies any legal issues. Patient denies any drug use however drink approximately 2-3 times a month, last use was a few beers yesterday. Patient used to drink a lot more. She denies any tobacco use PSYCHIATRIC HISTORY Patient reports multiple prior psychiatric admissions. Most recently admitted at [facility] 06/16/15-06/22/15 and 04/28/14-05/05/14. Patient reports that he is an outpatient treatment at [facility] ([facility]) with Dr. Flores. He also sees a therapist, Gloria Ahumada weekly. Prescribed Wellbutrin XL 150 mg daily, celexa 40 mg daily, xanax 2 mg po bid, remeron 30 mg hs and Seroquel 200 mg HS. Patient reports suicide attempt a couple of years ago, he superficially cut himself in the chest with a knife. ~~~~~~~~~~~~ I reviewed recent notes and met with patient at bedside. He remains oriented x3 and fairly cooperative with questioning. He is still depressed with constricted affect. Responses are consistent and relevant to questioning. We discuss medication trials and patient indicates poor response with Prozac. He cannot recall if Zoloft or Paxil were beneficial. He is unsure about changing his antidepressant however he is agreeable to increasing Wellbutrin dose today Patient has been tolerating medications. Denies any new side effects, discomfort or pain. He has been calm on the unit and there were no behavioral issues since admission thus far. Diagnostic Results: Major depressive disorder recurrent severe without psychotic features Alcohol use disorder (severe in the past) Medication Change: No Medical Record Reviewed: Yes Mental Status Examination - Cognitive Function Orientation: Person, Place, Situation - Mood Mood: Depressed - Affect Affect: Constricted - Speech Speech: Appropriate - Formal Thought Process Formal Thought Process: No Impairment - Suicidal Ideation Suicidal Ideation: No - Homicidal Ideation Homicidal Ideation: No Goal/Treatment Plan - Goal/Treatment Plan Progress Toward Problem(s) and Goals/Treatment Plan: * Group, milieu and supportive tx * c/w Wellbutrin XL at increased dose of 300 mg daily * Celexa 40 mg daily, consider switch to another antidepressant. Will review with patient * Xanax 2 mg po bid for anxiety * Seroquel 200 mg po HS for mood control and off label for sleep. * Remeron 30 mg hs for depression * Appreciate f/u by Dr. Bailey on 02/22/17~please see medical note for more details * Vitals reviewed and noted below: Selected Entries 02/22/17 02/22/17 02/22/17 06:32 06:52 16:11 Temperature 98.4 F 97.4 F L Pulse Rate 78 69 73 Respiratory 18 20 Rate Blood Pressure 135/80 133/86 123/77 O2 Sat by Pulse 98 Oximetry ER LABS AND STUDIES 02/22/17 03:29 Reviewed EKG, NSR at [address]-segment elevations or depressions, no T-wave inversions, normal intervals. CXR reviewed, no acute processes. 02/22/17 03:40: Urine Opiates Screen Negative, Urine Methadone Screen Negative, Ur Barbiturates Screen Negative, Ur Phencyclidine Scrn Negative, Ur Amphetamines Screen Negative, U Benzodiazepines Scrn Positive, U Oth Cocaine Metabols Negative, U Cannabinoids Screen Negative 02/22/17 02:00: Alcohol, Quantitative 100 H 02/22/17 02:00: Sodium 141, Potassium 4.0, Chloride 104, Carbon Dioxide 25, Anion Gap 16, BUN 10, Creatinine 0.9, Est GFR ( Amer) > 60, Est GFR (Non- Af Amer) > 60, Random Glucose 110, Calcium 9.3, Total Bilirubin 0.4, AST 27, ALT 38, Alkaline Phosphatase 62, Total Protein 6.8, Albumin 4.3, Globulin 2.6, Albumin/Globulin Ratio 1.7 02/22/17 02:00: WBC 9.0 D, RBC 4.33, Hgb 13.1 L, Hct 39.8 L, MCV 91.9, MCH 30.3 , MCHC 32.9, RDW 13.1, Plt Count 287, MPV 9.8, Gran % 54.0, Lymph % (Auto) 36.9 H, Garza % (Auto) 5.6, Eos % (Auto) 2.8, Baso % (Auto) 0.7, Gran # 4.86, Lymph # 3.3, Garza # 0.5, Eos # 0.3, Baso # 0.06 FLOOR LABS AND STUDIES Laboratory Results - last 24 hr 02/22/17 02/22/17 02/22/17 08:10 08:10 08:10 POC Glucose (mg/dL) Fasting Glucose Triglycerides 317 H Cholesterol 168 LDL Cholesterol Direct 84 HDL Cholesterol 53 Free T4 0.98 TSH 3rd Generation 0.90 RPR Nonreactive 02/22/17 02/23/17 02/23/17 21:05 07:00 07:21 POC Glucose (mg/dL) 124 H 95 Fasting Glucose 102 Triglycerides Cholesterol LDL Cholesterol Direct HDL Cholesterol Free T4 TSH 3rd Generation RPR
[2017-02-24] MEDS: Insulin Reg-LOW-Coverage SC SCH ×2 (08:46→20:38)
[2017-02-24] MEDS: Multivitamin Therapeutic Tab PO SCH (08:57)
[2017-02-24] MEDS: buPROPion 300 mg/24 Hours XL Tab PO SCH (08:58)
--- NOTE | 2017-02-24 17:30 | CP.PCM.CON ---
<Keli Fuchs - Last Filed: 02/24/17 17:27> History of Present Illness - History of Present Illness History of Present Illness: PGY-2 Neurology consult note for Dr. Andrews's service 51 yo male with PMH of Diabetes, HTN, depression, anxiety presents for depression, SI and memory loss. Patient states that he feels that he has been having memory problems since his surgery in 2009. However he state sits been worse recently and his friends have been telling him that he repeats himself. He states that there are times he can not find items in his home but states that he has no difficulty with tasks of daily living. He denies any headache, fever, chills, chest pain, sob, urinary problems. He does report chronic neck pain due to a previous injury. PMH: Type 2 Diabetes, hypertension, hyperlipidemia, GERD, depression, anxiety PSH: Pituitary adenoma s/p resection family history: Father: Lung Ca Allergies: NKDA Social History: Smokes ~1/2ppd for past 37yrs, Drinks beer/shots of liquor 3time per month, Denies illicit drug use. Review of Systems - Review of Systems All systems: reviewed and no additional remarkable complaints except (as stated in HPI) Past Patient History - Past Medical History & Family History Past Medical History?: Yes - Past Social History Smoking Status: Former Smoker - CARDIAC Hx Cardiac Disorders: Yes - PULMONARY Hx Respiratory Disorders: Yes Hx Bronchitis: Yes (2008) - NEUROLOGICAL Hx Neurological Disorder: No - HEENT Hx HEENT Problems: No - RENAL Hx Chronic Kidney Disease: No - ENDOCRINE/METABOLIC Hx Endocrine Disorders: Yes (removal pitituary tumor) - INTEGUMENTARY Hx Dermatological Problems: No - MUSCULOSKELETAL/RHEUMATOLOGICAL Hx Herniated Disk: Yes (lumbar and cervical) - GASTROINTESTINAL Hx Gastrointestinal Disorders: Yes Hx Gastroesophageal Reflux: Yes Other/Comment: IRREGULAR BOWEL PATTERN - GENITOURINARY/GYNECOLOGICAL Hx Genitourinary Disorders: No Hx Sexually Transmitted Disorders: No - PSYCHIATRIC Hx Substance Use: No - ANESTHESIA Hx Anesthesia: Yes Hx Anesthesia Reactions: No Hx Malignant Hyperthermia: No Meds Allergies/Adverse Reactions: Allergies Allergy/AdvReac Type Severity Reaction Status Date / Time No Known Allergies Allergy Verified 02/22/17 01:18 - Medications Medications: Current Medications Alprazolam (Xanax) 2 mg PO BID LOLI PRN Reason: Protocol Last Admin: 02/24/17 08:57 Dose: 2 mg Aspirin (Aspirin Chewable) 81 mg PO DAILY [facility] Last Admin: 02/24/17 08:58 Dose: 81 mg Atorvastatin Calcium (Lipitor) 40 mg PO DIN [facility] Last Admin: 02/23/17 16:33 Dose: 40 mg Bupropion HCl (Wellbutrin Xl) 300 mg PO DAILY [facility] Last Admin: 02/24/17 08:58 Dose: 300 mg Citalopram Hydrobromide (Celexa) 40 mg PO DAILY [facility] Last Admin: 02/24/17 08:58 Dose: 40 mg Folic Acid (Folic Acid) 1 mg PO DAILY [facility] Last Admin: 02/24/17 08:57 Dose: 1 mg Lisinopril (Zestril) 20 mg PO DAILY [facility] Last Admin: 02/24/17 08:58 Dose: 20 mg Lorazepam (Ativan) 1 mg PO Q6H PRN; Protocol PRN Reason: Withdrawal Metformin HCl (Glucophage) 500 mg PO BID [facility] Methylphenidate HCl (Ritalin) 5 mg PO DAILY [facility] Last Admin: 02/24/17 13:30 Dose: 5 mg Mirtazapine (Remeron) 30 mg PO HS [facility] Last Admin: 02/23/17 21:25 Dose: 30 mg Multivitamins (Thera Tab) 1 tab PO 0800 [facility] Last Admin: 02/24/17 08:57 Dose: 1 tab Nicotine (Nicoderm Cq) 1 patch TD DAILY [facility] Last Admin: 02/24/17 08:56 Dose: 1 patch Quetiapine Fumarate (Seroquel) 200 mg PO HS [facility] PRN Reason: Protocol Last Admin: 02/23/17 21:25 Dose: 200 mg Sitagliptin Phosphate (Januvia) 50 mg PO DAILY [facility] Thiamine HCl (Vitamin B1 Tab) 100 mg PO DAILY [facility] Last Admin: 02/24/17 08:57 Dose: 100 mg Physical Exam - Constitutional Appears: Well, No Acute Distress - Head Exam Head Exam: ATRAUMATIC, NORMAL INSPECTION, NORMOCEPHALIC - Eye Exam Eye Exam: EOMI, Normal appearance, PERRL - ENT Exam ENT Exam: Mucous Membranes Moist - Respiratory Exam Respiratory Exam: Clear to Auscultation Bilateral, NORMAL BREATHING PATTERN. absent: Respiratory Distress - Cardiovascular Exam Cardiovascular Exam: REGULAR RHYTHM - Neurological Exam Neurological exam: Alert, CN II-XII Intact, Normal Gait, Oriented x3, Reflexes Normal - Expanded Neurological Exam Expanded Patient oriented to: person, place, time Cerebellar Function: Finger to Nose: Normal Neuro motor strength exam: Left Upper Extremity: 5, Right Upper Extremity: 5, Left Lower Extremity: 5, Right Lower Extremity: 5 Results - Vital Signs Recent Vital Signs: Last Vital Signs Temp 97.8 F 02/23/17 06:47 Pulse 72 02/24/17 08:58 Resp 20 02/23/17 06:47 BP 100/65 02/24/17 08:58 Pulse Ox 98 02/22/17 06:32 - Labs Result Diagrams: 02/22/17 02:00 02/22/17 02:00 Labs: Laboratory Results - last 24 hr 02/23/17 02/24/17 02/24/17 21:09 08:08 11:26 POC Glucose (mg/dL) 173 H 130 H 208 H Assessment & Plan - Assessment and Plan (Free Text) Assessment: 51 yo male with PMH of Diabtes, HTN, depression, anxity presents for depression , SI and memory loss 1. memory loss 2. depression - CT head to evaluate extent of atrophy - vit B12 levels - consider ritalin 5mg PO daily for cognition - continue treatment and medication for depression - maintain blood sugar between 140-180 - cognitive exercises - follow up outpatient for memory loss case reviewed and discussed with attending <Selvin Andrews - Last Filed: 02/24/17 17:59> Meds - Medications Medications: Current Medications Alprazolam (Xanax) 2 mg PO BID [facility] PRN Reason: Protocol Last Admin: 02/24/17 17:25 Dose: 2 mg Aspirin (Aspirin Chewable) 81 mg PO DAILY [facility] Last Admin: 02/24/17 08:58 Dose: 81 mg Atorvastatin Calcium (Lipitor) 40 mg PO DIN [facility] Last Admin: 02/24/17 17:24 Dose: 40 mg Bupropion HCl (Wellbutrin Xl) 300 mg PO DAILY [facility] Last Admin: 02/24/17 08:58 Dose: 300 mg Citalopram Hydrobromide (Celexa) 40 mg PO DAILY [facility] Last Admin: 02/24/17 08:58 Dose: 40 mg Folic Acid (Folic Acid) 1 mg PO DAILY [facility] Last Admin: 02/24/17 08:57 Dose: 1 mg Lisinopril (Zestril) 20 mg PO DAILY [facility] Last Admin: 02/24/17 08:58 Dose: 20 mg Lorazepam (Ativan) 1 mg PO Q6H PRN; Protocol PRN Reason: Withdrawal Metformin HCl (Glucophage) 500 mg PO BID [facility] Last Admin: 02/24/17 17:24 Dose: 500 mg Methylphenidate HCl (Ritalin) 5 mg PO DAILY [facility] Last Admin: 02/24/17 13:30 Dose: 5 mg Mirtazapine (Remeron) 30 mg PO HS [facility] Last Admin: 02/23/17 21:25 Dose: 30 mg Multivitamins (Thera Tab) 1 tab PO 0800 [facility] Last Admin: 02/24/17 08:57 Dose: 1 tab Nicotine (Nicoderm Cq) 1 patch TD DAILY [facility] Last Admin: 02/24/17 08:56 Dose: 1 patch Quetiapine Fumarate (Seroquel) 200 mg PO HS [facility] PRN Reason: Protocol Last Admin: 02/23/17 21:25 Dose: 200 mg Sitagliptin Phosphate (Januvia) 50 mg PO DAILY [facility] Thiamine HCl (Vitamin B1 Tab) 100 mg PO DAILY [facility] Last Admin: 02/24/17 08:57 Dose: 100 mg Results - Vital Signs Recent Vital Signs: Last Vital Signs Temp 97.8 F 02/23/17 06:47 Pulse 72 02/24/17 08:58 Resp 20 02/23/17 06:47 BP 100/65 02/24/17 08:58 Pulse Ox 98 02/22/17 06:32 - Labs Result Diagrams: 02/22/17 02:00 02/22/17 02:00 Labs: Laboratory Results - last 24 hr 02/23/17 02/24/17 02/24/17 21:09 08:08 11:26 POC Glucose (mg/dL) 173 H 130 H 208 H Attending/Attestation - Attestation I have personally seen and examined this patient.: Yes I have fully participated in the care of the patient.: Yes I have reviewed all pertinent clinical information: Yes
--- NOTE | 2017-02-24 21:52 | PCM.PYCHPN ---
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 Additionally he had brain surgery for a pituitary adenoma in May of 2014 which resulted in residual forgetfulness and repetitiveness. His 2 years ago this [place]. He has been seeing a therapist and psychiatrist for the last 3 years and has been on Celexa and Wellbutrin, neither of which he feels are helpful at this point. He estimates he has been hospitalized at least 10 times with a history of 4 suicide attempts. His first suicide attempt was at age 17, he lay on the railroad tracks and was saved by a friend, others were overdoses. He denies any history of drug abuse, however 2- 3x a month he will drink it all at one sitting. He had a difficult life, he is the oldest of 4 boys, father left when he was 4, mother was a drug addict and patient was raised mostly in group homes. He indicates that he has been depressed his "whole life". He lives with his 2 sons ages 22 and 23, one just graduated from college and is set to attend the police academy, the other works as a lead welder. His finances are difficult and he has applied for disability but has not heard the outcome of this yet. He denies being suicidal or homicidal, he denies the presence of hallucinations , delusions or paranoia. His mood is blunted, memory and focus and concentration are poor. Sleep and appetite are reported as normal. His goal for this hospitalization is to "feel better". Medication Change: Yes (Ritalin added) Medical Record Reviewed: Yes Mental Status Examination - Cognitive Function Orientation: Person, Place, Situation - Mood Mood: Depressed - Affect Affect: Constricted - Speech Speech: Appropriate - Formal Thought Process Formal Thought Process: No Impairment - Suicidal Ideation Suicidal Ideation: No - Homicidal Ideation Homicidal Ideation: No
[2017-02-25] MEDS: buPROPion 300 mg/24 Hours XL Tab PO SCH (09:01)
[2017-02-25] MEDS: Multivitamin Therapeutic Tab PO SCH (09:01)
--- NOTE | 2017-02-25 09:42 | CT ---
PROCEDURE: CT HEAD WITHOUT CONTRAST. HISTORY: memeory loss COMPARISON: 09/08/2016 TECHNIQUE: Axial computed tomography images were obtained through the head/brain without intravenous contrast. Radiation dose: Total exam DLP = 678 mGy-cm. This CT exam was performed using one or more of the following dose reduction techniques: Automated exposure control, adjustment of the mA and/or kV according to patient size, and/or use of iterative reconstruction technique. FINDINGS: HEMORRHAGE: No intracranial hemorrhage. BRAIN: No mass effect or edema. No atrophy or chronic microvascular ischemic changes. VENTRICLES: Unremarkable. No hydrocephalus. CALVARIUM: Unremarkable. PARANASAL SINUSES: Unremarkable as visualized. No significant inflammatory changes. MASTOID AIR CELLS: Unremarkable as visualized. No inflammatory changes. OTHER FINDINGS: None. IMPRESSION: No acute findings
--- NOTE | 2017-02-25 19:30 | PCM.PYCHPN ---
Psychiatric Progress Note - Psychiatric Progress Note Patient seen today, length of contact: 25 min Patient Chief Complaint: "I have been out of work for almost 7 years and I have not heard from Disability. This is taking too long." Problems Identified/Issues Discussed: Patient continues to perseverate over the fact that he "should have had an answer" about the disability by now. He keeps coming back to this throughout the interview. He indicates he feels energized with the addition of the Ritalin but it is unclear as to whether there is a change in his focus and concentration. He indicates that he is no longer suicidal but feel he will "go back the same way" once discharged because "three years of therapy weekly have not changed anything". He is taking part in unit activities. Medication Change: No Medical Record Reviewed: Yes Mental Status Examination - Cognitive Function Orientation: Person, Place, Situation Attention: Poor Concentration: Poor Association: WNL Fund of Knowledge: Poor - Mood Mood: Depressed - Affect Affect: Constricted - Speech Speech: Appropriate - Formal Thought Process Formal Thought Process: No Impairment - Suicidal Ideation Suicidal Ideation: No - Homicidal Ideation Homicidal Ideation: No
[2017-02-26] MEDS: buPROPion 300 mg/24 Hours XL Tab PO SCH (09:09)
[2017-02-26] MEDS: Multivitamin Therapeutic Tab PO SCH (09:09)
--- NOTE | 2017-02-26 20:50 | PCM.PYCHPN ---
Psychiatric Progress Note - Psychiatric Progress Note Patient seen today, length of contact: 25 min Patient Chief Complaint: "I still have not heard from Disability." Problems Identified/Issues Discussed: Patient continues on his application for disability. He keeps coming back to this throughout the interview. Nursing staff have noted increase in energy and improved affect with the addition of the Ritalin. He brings up that he just sits in a chair at home all day and does nothing normally, but when further questioned indicates that he showers and attends to his hygiene daily, as well as cleaning his home and shopping for groceries. He is participating in unit activities and his behavior is cooperative. Medication Change: No Medical Record Reviewed: Yes Mental Status Examination - Cognitive Function Orientation: Person, Place, Situation Attention: Poor Concentration: Poor Association: WNL Fund of Knowledge: Poor - Mood Mood: Depressed - Affect Affect: Constricted - Speech Speech: Appropriate - Formal Thought Process Formal Thought Process: No Impairment - Suicidal Ideation Suicidal Ideation: No - Homicidal Ideation Homicidal Ideation: No
[2017-02-26] MEDS: POLYETHYLENE GLYCOL 3350 17 GM/Dose PACKET PO SCH (22:01)
[2017-02-27] MEDS: POLYETHYLENE GLYCOL 3350 17 GM/Dose PACKET PO SCH (09:28)
[2017-02-27] MEDS: buPROPion 300 mg/24 Hours XL Tab PO SCH (09:29)
[2017-02-27] MEDS: Multivitamin Therapeutic Tab PO SCH (09:29)
[2017-02-27] MEDS ORDERED: Magnesium Citrate Oral SOL (300 ml) PO ONE (10:25)
--- NOTE | 2017-02-27 17:14 | PCM.PYCHPN ---
Psychiatric Progress Note - Psychiatric Progress Note Patient seen today, length of contact: 25 min Patient Chief Complaint: "I am feeling better and I want to go home" Problems Identified/Issues Discussed: Patient is affectively improved. He indicates he has more energy and he wants to get home and take care of things. He is worried that his children are going to be away for the weekend and he needs to take care of his dog. He plans to continue with his psychiarist Dr Padgett and his outpatient therapist. He no longer feels suicidal and feels like he is able to cope better. Will discuss further with Dr Cerna tomorrow. Medication Change: No Medical Record Reviewed: Yes Mental Status Examination - Cognitive Function Orientation: Person, Place, Situation Attention: Poor Concentration: Poor Association: WNL Fund of Knowledge: Poor - Mood Mood: Depressed - Affect Affect: Constricted - Speech Speech: Appropriate - Formal Thought Process Formal Thought Process: No Impairment - Suicidal Ideation Suicidal Ideation: No - Homicidal Ideation Homicidal Ideation: No
[2017-02-27] MEDS ORDERED: Magnesium Hydroxide Susp 30 ml UD PO PRN (20:15)
[2017-02-27] MEDS ORDERED: Alum-Mag Hydrox-Simethicone Susp (30 mL) PO PRN (20:15)
[2017-02-28 07:19] VITALS: BP 110/62; PULSE 71; TEMP 97.9
[2017-02-28] MEDS: buPROPion 300 mg/24 Hours XL Tab PO SCH (08:56)
[2017-02-28] MEDS: POLYETHYLENE GLYCOL 3350 17 GM/Dose PACKET PO SCH (08:57)
[2017-02-28] MEDS: Multivitamin Therapeutic Tab PO SCH (08:58)
--- NOTE | 2017-02-28 14:04 | PCM.PYCHDC ---
Mental Status Examination - Mental Status Examination Orientation: Place, Situation, Time Memory: Impaired Mood: Neutral Affect: Broad Speech: Appropriate Attention: Poor Concentration: Poor Association: WNL Fund of Knowledge: WNL Formal Thought Process: No Impairment Description of patient's judgement and insight: Patient denies being suicidal or homicidal, is in no imminent danger of hurting himself or others. Psychotic Thoughts and Behaviors: Patient has no symptoms of psychosis, denies the presence of hallucinations, delusions and paranoia. 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 Additionally he had brain surgery for a pituitary adenoma in May of 2014 which resulted in residual forgetfulness and repetitiveness. His 2 years ago this [place]. He has been seeing a therapist and psychiatrist for the last 3 years and has been on Celexa and Wellbutrin, neither of which he feels are helpful at this point. He estimates he has been hospitalized at least 10 times with a history of 4 suicide attempts. His first suicide attempt was at age 17, he lay on the railroad tracks and was saved by a friend, others were overdoses. He denies any history of drug abuse, however 2- 3x a month he will drink it all at one sitting. He had a difficult life, he is the oldest of 4 boys, father left when he was 4, mother was a drug addict and patient was raised mostly in group homes. He indicates that he has been depressed his "whole life". He lives with his 2 sons ages 22 and 23, one just graduated from college and is set to attend the [employer], the other works as a welder fabricator. His finances are difficult and he has applied for disability but has not heard the outcome of this yet. He denies being suicidal or homicidal, he denies the presence of hallucinations , delusions or paranoia. His mood is blunted, memory and focus and concentration are poor. Sleep and appetite are reported as normal. His goal for this hospitalization is to "feel better". Laboratory Data: Abnormal Lab Results 02/27/17 02/27/17 02/28/17 16:25 21:13 07:18 POC Glucose (mg/dL) 151 H 153 H 89 02/28/17 11:04 POC Glucose (mg/dL) 194 H Consultations:: List each consultation separately and include: 1. Reason for request. 2. Findings. 3. Follow-up Consultations: Patient was seen by the hospitalist 02/17/2017 for management of his DM, HLD, and HTN management. Patient was seen by Dr Andrews for neurology consult due to patient's history of forgetfulness secondary to history of brain surgery for a pituitary adenoma. Ct scan without contrast showed no abnormalities. Summary of Hospital Course include:: 1. Description of specific treatment plan utilized for patients during their course of treatmen. 2. Summarize the time- course for resolution of acute symptoms and/or regressed behaviors. 3. Describe issues identified and worked on during hospitalization. 4. Describe medication utilized. 5. Describe medical problems identified and treated. 6. Reassessment of suicide risk Summary of Hospital Course: Treatment plan: Milieu/structure/supportive therapy Medical consult appreciated, see medical team note for more detailed info SW consultation for discharge plan and social issues Med management Family involvement Follow up on labs Will monitor closely SW evaluation for d/c planning Pt was educated about risk/benefits and alternatives of medications, coping strategies (safety plan, suicide prevention), relapse prevention, importance of follow up with psychiatrist and therapist, stay away from drugs/alcohol/smoking - Diagnosis (1) Major depressive disorder, severe Current Visit: Yes Status: Acute - Final Diagnosis (DSM 5) Condition upon Discharge: STABLE Disposition: HOME/ ROUTINE Prescriptions/Medication Reconciliation: Alprazolam [Xanax] 2 mg PO BID #30 tablet ALPRAZolam [Xanax] 2 mg PO BID #30 tab Atorvastatin [Lipitor] 40 mg PO DIN #14 tab buPROPion XL [Wellbutrin XL] 300 mg PO DAILY #14 t24 Citalopram [celEXA] 40 mg PO DAILY #14 tab Lisinopril [Zestril] 20 mg PO DAILY #14 tab metFORMIN [glucOPHAGE] 500 mg PO BID #30 tab Methylphenidate [Ritalin] 5 mg PO DAILY #14 tab Mirtazapine [Remeron] 30 mg PO HS #14 tab QUEtiapine [Seroquel] 200 mg PO HS #30 tab - Smoking Cessation Smoking Cessation Medication prescribed: Yes - Antipsychotic Medications Pt discharged on 2 or more routine antipsychotic medications: No
== END 2017-02-28 17:30 | disposition home or self-care (01) | DRG 430 ==
LOC: ED 01:11 → PSYC 06:12
PROVIDERS: ADMIT Psychiatry & Neurology Psychiatry; ATTEND Psychiatry & Neurology Addiction Medicine
DX: F32.2 Major depressive disorder, single episode, severe without psychotic features (principal); E11.9 Type 2 diabetes mellitus without complications; D35.2 Benign neoplasm of pituitary gland; E78.5 Hyperlipidemia, unspecified; I10 Essential (primary) hypertension; F17.200 Nicotine dependence, unspecified, uncomplicated; F10.10 Alcohol abuse, uncomplicated; Y90.5 Blood alcohol level of 100-119 mg/100 ml; F41.9 Anxiety disorder, unspecified; R41.3 Other amnesia; K21.9 Gastro-esophageal reflux disease without esophagitis; Z79.84 Long term (current) use of oral hypoglycemic drugs

== ENCOUNTER 2017-12-27 14:43 | Emergency (ER) | payer MEDICAID, OTHER ==
--- NOTE | 2017-12-27 15:02 | ED PDOC ---
Arrival/HPI - General Time Seen by Provider: 12/27/17 14:53 Historian: Patient - History of Present Illness Narrative History of Present Illness (Text): 12/27/17 14:59 52 year old male, pmh including htn/hld/dm/asthma, psychiatric history of depression, nkda, previous penitentiary smoker, complaining of coughing and chest tightness with wheezing x 2 days. Pt. stated that he has nasal congestion with coughing, coughing with phelgm and wheezing, no palpitation, no chest pain, admits feels like asthma attack, no night sweat, no rash, no fever or chills, no dizziness, no change in vision, no headache or neck pain, no other medical or psychological complaints. Past Medical History - Provider Review Nursing Documentation Reviewed: Yes - Cardiac Hx Cardiac Disorders: Yes - Pulmonary Hx Respiratory Disorders: Yes Hx Bronchitis: Yes (2008) - Neurological Hx Neurological Disorder: No - HEENT Hx HEENT Disorder: No - Renal Hx Renal Disorder: No - Endocrine/Metabolic Hx Endocrine Disorders: Yes (removal pitituary tumor) - Integumentary Hx Dermatological Disorder: No - Musculoskeletal/Rheumatological Hx Herniated Disk: Yes (lumbar and cervical) - Gastrointestinal Hx Gastrointestinal Disorders: Yes Hx Gastroesophageal Reflux: Yes Other/Comment: IRREGULAR BOWEL PATTERN - Genitourinary/Gynecological Hx Genitourinary Disorders: No Hx Sexually Transmitted Diseases: No - Psychiatric Hx Substance Use: No - Anesthesia Hx Anesthesia: Yes Hx Anesthesia Reactions: No Hx Malignant Hyperthermia: No - Suicidal Assessment Feels Threatened In Home Enviroment: No Family/Social History - Physician Review Nursing Documentation Reviewed: Yes Family/Social History: Unknown Family HX Smoking Status: Former Smoker Hx Alcohol Use: Yes Hx Substance Use: No Hx Substance Use Treatment: No Allergies/Home Meds Allergies/Adverse Reactions: Allergies No Known Allergies Allergy (Verified 12/27/17 14:58) Home Medications: Home Meds Medication Instructions Recorded Confirmed Aspirin [Adult Low Dose Aspirin EC] 1 tab PO DAILY 09/03/16 02/22/17 Review of Systems - Review of Systems Constitutional: absent: Fatigue, Fevers Eyes: absent: Vision Changes ENT: Rhinorrhea. absent: Hearing Changes Respiratory: Cough, Sputum, Wheezing. absent: SOB Cardiovascular: absent: Chest Pain Gastrointestinal: absent: Abdominal Pain, Nausea, Vomiting Skin: absent: Rash, Pruritis Neurological: absent: Headache, Dizziness Psychiatric: absent: Anxiety, Depression Physical Exam - Systems Exam Head: Present: Atraumatic, Normocephalic Pupils: Present: PERRL Extroacular Muscles: Present: EOMI Conjunctiva: Present: Normal Mouth: Present: Moist Mucous Membranes Neck: Present: Normal Range of Motion Respiratory/Chest: Present: Wheezes, Decreased Breath Sounds, Rhonchi. No: Respiratory Distress, Accessory Muscle Use, Rales, Retracting, Tachypneic, Tender to Palpation Cardiovascular: Present: Regular Rate and Rhythm, Normal S1, S2, Other (no pedal edema). No: Murmurs Abdomen: No: Tenderness, Distention, Peritoneal Signs Back: Present: Normal Inspection Upper Extremity: Present: Normal Inspection. No: Cyanosis, Edema Lower Extremity: Present: Normal Inspection. No: Edema Neurological: Present: GCS=15, CN II-XII Intact, Speech Normal Skin: Present: Warm, Dry, Normal Color. No: Rashes Psychiatric: Present: Alert, Oriented x 3, Normal Insight, Normal Concentration Medical Decision Making ED Course and Treatment: 12/27/17 15:03 -labs -Chest X-Ray -IV solumedrol/duoneb -Observe and reassess 12/27/17 16:53 -Chest xray: No active disease. -Labs are on-significant -Wheezing resolved, feeling much better, walking around the Emergency room with no coughing/rhonchi/wheezing/rales. -All labs and radiology results discussed with the patient. -Azithromycin 500mg po ordered. -Discharge home with zithromycin, prednisone, albuterol, claritin, stay hydrated, follow up with your own pmd within 2 days, return to the Emergency room for any new or worsening signs or symptoms. - RAD Interpretation Radiology Orders: Date of service: 12/27/2017 HISTORY: cough and wheezing x 2 days. COMPARISON: 02/22/2017 FINDINGS: LUNGS: No active pulmonary disease. PLEURA: No significant pleural effusion identified, no pneumothorax apparent. CARDIOVASCULAR: Normal. OSSEOUS STRUCTURES: No significant abnormalities. VISUALIZED UPPER ABDOMEN: Normal. OTHER FINDINGS: None. IMPRESSION: No active disease. Residential Program Coordinator: Radiologist - PA / SEAMER / Resident Statement MD/DO has reviewed & agrees with the documentation as recorded. Disposition/Present on Arrival - Present on Arrival Any Indicators Present on Arrival: No History of DVT/PE: No History of Uncontrolled Diabetes: No Urinary Catheter: No History of Decub. Ulcer: No History Surgical Site Infection Following: None - Disposition Have Diagnosis and Disposition been Completed?: Yes Diagnosis: Bronchitis Disposition: HOME/ ROUTINE Disposition Time: 16:55 Patient Plan: Discharge Condition: IMPROVED Additional Instructions: -Discharge home with zithromycin, prednisone, albuterol, claritin, stay hydrated, follow up with your own pmd within 2 days, return to the Emergency room for any new or worsening signs or symptoms. Prescriptions: Albuterol HFA [Ventolin HFA 90 mcg/actuation (8 g)] 2 puff IH [id number] PRN #1 in PRN Reason: Other Azithromycin [Zithromax] 250 mg PO DAILY #4 tab Loratadine [Claritin] 10 mg PO DAILY #10 tab Prednisone 50 mg PO DAILY #5 tab Referrals: Abhishek Garza MD [Staff Provider] - Follow up with primary [facility] [place] [Outside] - Follow up with primary Forms: WORK NOTE
[2017-12-27 15:07] VITALS: RESP 20; TEMP 97.6; BMI 33.0
[2017-12-27] MEDS: Albuterol-Ipratrop 3 mg / 0.5 (3 ml) UD IH SCH ×3 (15:18→16:03)
[2017-12-27 16:04] LABS: BASO # 0.05 K/mm3 (0.0-2.0); BASO % 0.6 % (0.0-3.0); EOS # 0.2 (0.0-0.7); EOS % 3.1 % (1.5-5.0); GRAN # 4.17 (1.4-6.5); HEMOGLOBIN 13.3 g/dL (14.0-18.0); LYMPH # 2.6 (1.2-3.4); LYMPH % 33.4 % (22.0-35.0); MEAN CELL VOLUME 91.9 fl (80.0-105.0); MEAN CORPUSCULAR HEMOGLOBIN 30.7 pg (25.0-35.0); MEAN CORPUSCULAR HGB CONC 33.4 g/dl (31.0-37.0); MEAN PLATELET VOLUME 9.5 fl (7.0-11.0); MONO # 0.7 (0.1-0.6); MONO % 8.9 % (1.0-6.0); RBC 4.33 10^6/uL (3.5-6.1); RED CELL DISTRIBUTION WIDTH 12.4 % (11.5-14.5); WHITE BLOOD COUNT 7.7 10^3/ul (4.5-11.0)
--- NOTE | 2017-12-27 16:07 | RAD ---
Date of service: 12/27/2017 HISTORY: cough and wheezing x 2 days. COMPARISON: 02/22/2017 FINDINGS: LUNGS: No active pulmonary disease. PLEURA: No significant pleural effusion identified, no pneumothorax apparent. CARDIOVASCULAR: Normal. OSSEOUS STRUCTURES: No significant abnormalities. VISUALIZED UPPER ABDOMEN: Normal. OTHER FINDINGS: None. IMPRESSION: No active disease.
[2017-12-27 16:13] LABS: ALB/GLOB RATIO 1.5 (1.1-1.8); ALBUMIN 4.1 g/dL (3.0-4.8); ALT/SGPT 39 U/L (7-56); AST/SGOT 36 U/L (17-59); BLOOD UREA NITROGEN 12 mg/dL (7-21); CALCIUM 9.4 mg/dL (8.4-10.5); GFR NON-AFRICAN AMERICAN > 60
[2017-12-27 17:08] VITALS: BP 128/74; PULSE 91; O2SAT 99
--- NOTE | 2017-12-28 15:27 | CARD ---
APPROVED REPORT Date of service: 12/27/2017 EKG Measurement Heart [id number] <Conclusion> Normal sinus rhythm Normal ECG
== END 2017-12-27 17:00 | disposition home or self-care (01) ==
LOC: ED 14:43
DX: J40 Bronchitis, not specified as acute or chronic (principal); I10 Essential (primary) hypertension; E78.5 Hyperlipidemia, unspecified; Z87.891 Personal history of nicotine dependence
CPT/HCPCS: 71045; 80053; 83735; 85025; 93005; 96374; 99284; J2930